=== PATIENT | female | born 1975 | race Caucasian/White ===

== ENCOUNTER 2024-01-13 12:00 | Emergency (ER) | payer MEDICAID ==
[~2024-01-13] VITALS: Ht 157.5 cm; Wt 115.7 kg
[2024-01-13 13:15] LABS: Basophils # (auto) 0.1 10 ^3/uL (0-0.2); Basophils % (auto) 0.6 % (0.0-2.0); Eosinophils # (auto) 0.4 10 ^3/uL (0-0.8); Eosinophils % (auto) 4.3 % (0.0-7.0); Hematocrit 40.2 % (36.0-46.0); Lymphocytes # (auto) 1.9 10 ^3/uL (0.4-5.4); Lymphocytes % (auto) 22.4 % (10.0-50.0); Mean Corpuscular Hemoglobin 33.3 pg (28.0-32.0); Mean Corpuscular Hgb Conc. 34.8 g/dL (32.0-36.0); Mean Corpuscular Volume 95.7 fL (80.0-100.0); Monocytes # (auto) 0.8 10 ^3/uL (0-1.3); Monocytes % (auto) 9.8 % (0.0-12.0); Neutrophils # (auto) 5.3 10 ^3/uL (1.6-8.6); Neutrophils % (auto) 62.9 % (37.0-80.0); Nucleated Red Blood Cells % 0.1 %; Red Cell Distribution Width 12.9 % (11.8-14.3); White Blood Cell 8.4 10^3/uL (4.4-10.8)
[2024-01-13] MEDS ORDERED: AMOX500T86 PO (13:21)
[2024-01-13 13:29] LABS: Chloride 102 mmol/L (98-107); Potassium 3.8 mmol/L (3.5-5.1); Sodium 136 mmol/L (136-145)
[2024-01-13 13:30] LABS: Anion Gap 5 (5-15); Calcium 9.9 mg/dL (8.7-10.4); Carbon Dioxide 29 mmol/L (20-30)
[2024-01-13 13:35] LABS: BUN/Creatinine Ratio 13.8 (10.0-20.0); Blood Urea Nitrogen 9 mg/dL (9-23); Glucose 127 mg/dL (74-106)
[2024-01-13 14:01] LABS: Urine Bacteria None Seen /hpf (None Seen)
[2024-01-13 14:11] LABS: Urine Blood Negative /uL (Negative); Urine Clarity Clear (Clear); Urine Color Yellow (Yellow); Urine Mucus FEW (None Seen); Urine Protein, UAD Negative (Negative); Urine Specific Gravity 1.025 (1.001-1.035); Urine Urobilinogen 3 mg/dL (Negative); Urine WBC 1 /hpf (0 - 5)
[2024-01-13 14:43] VITALS: BP 140/87; PULSE 87; RESP 17; O2SAT 95
[2024-01-13] MEDS: ACETAMINOPHEN 500 MG TAB PO ONE (14:49)
[2024-01-13 15:10] VITALS: TEMP 99
== END 2024-01-13 15:10 | disposition home or self-care (01) ==
LOC: ER 12:00
DX: J32.9 Chronic sinusitis, unspecified (principal); R42 Dizziness and giddiness
CPT/HCPCS: 36415; 80048; 81001; 85025